=== PATIENT | male | born 1950 | race African-American/Black ===

== ENCOUNTER 2017-09-26 13:08 | Emergency (ER) | payer OTHER ==
[~2017-09-26] VITALS: Ht 203.2 cm; Wt 67.0 kg
[2017-09-26 13:15] VITALS: BP 112/82; PULSE 102; RESP 14; TEMP 98; O2SAT 94
[2017-09-26] MEDS ORDERED: SODIUM CHLORIDE 0.9% FLUSH 10 ML FLUSH IVF PRN (14:45)
--- NOTE | 2017-09-26 14:47 | PD ---
HPI Chief Complaint: GI Complaint Time Seen by Provider: 14:25 Travel History International Travel<30 days: No Contact w/Intl Traveler<30days: No Traveled to known affect area: No History of Present Illness HPI Patient gives a history of about a weeklong occasional nausea vomiting and diarrhea that developed. Patient does not recall if he ever had any abdominal pain prior to vomiting or diarrhea. However the patient did recall that about the same time that he started having these symptoms he did have a dry cough. This cough has continued to be present and now continues to appear to worsen where now it is productive of some yellow to green sputum. Patient denies any associated factors such as fever, rash, back pain, chest pain, headache. Patient also denies any alleviating or aggravating factors. Patient does not recall who the primary care physician is except that is through [employer] Patient denies any known drug allergies Patient denies any past medical history Patient only states that he has had facial fracture repair PFSH Past Medical History Medical History: Denies Significant Hx Influenza Vaccination: No Past Surgical History Surgical History: No Previous Surgery Social History Alcohol Use: Yes Tobacco Use: Yes Substance Use: No Allergies-Medications (Allergen,Severity, Reaction): Coded Allergies: No Known Allergies (Unverified , 09/26/17) Reported Meds & Prescriptions Reported Meds & Active Scripts Active No Active Prescriptions or Reported Medications Review of Systems General / Constitutional: No: Fever Eyes: No: Visual changes HENT: No: Headaches Cardiovascular: No: Chest Pain or Discomfort Respiratory: Positive: Cough Gastrointestinal: Positive: Nausea, Vomiting, Diarrhea Genitourinary: No: Dysuria Musculoskeletal: No: Pain Skin: No Rash Neurologic: No: Weakness Psychiatric: No: Depression Endocrine: No: Polydipsia Hematologic/Lymphatic: No: Easy Bruising Physical Exam Narrative GENERAL: SKIN: Warm and dry. HEAD: Atraumatic. Normocephalic. EYES: Pupils equal and round. No scleral icterus. No injection or drainage. ENT: No nasal bleeding or discharge. Mucous membranes pink and moist. NECK: Trachea midline. No JVD. CARDIOVASCULAR: Regular rate and rhythm. RESPIRATORY: No accessory muscle use. Bilateral wheezing, but with good tidal volume GASTROINTESTINAL: Abdomen soft, non-tender, nondistended. MUSCULOSKELETAL: Extremities without clubbing, cyanosis, or edema. No obvious deformities. NEUROLOGICAL: Awake and alert. No obvious cranial nerve deficits. Motor grossly within normal limits. Five out of 5 muscle strength in the arms and legs. Normal speech. PSYCHIATRIC: Appropriate mood and affect; insight and judgment normal. Data Data Last Documented VS Vital Signs Date Time Temp Pulse Resp B/P (MAP) Pulse Ox O2 Delivery O2 Flow Rate FiO2 09/26/17 14:58 166/84 (111) 145/92 (109) 09/26/17 14:58 98 Room Air 09/26/17 13:15 98.0 102 14 Orders Orders Electrocardiogram (09/26/17 14:40) B-Type Natriuretic Peptide (09/26/17 14:40) Complete Blood Count With Diff (09/26/17 14:40) Comprehensive Metabolic Panel (09/26/17 14:40) Prothrombin Time / Inr (Pt) (09/26/17 14:40) Act Partial Throm Time (Ptt) (09/26/17 14:40) Troponin I (09/26/17 14:40) Lipase (09/26/17 14:40) Chest, Single Ap (09/26/17 14:40) Ecg Monitoring (09/26/17 14:40) Bilateral Bp Monitoring (09/26/17 14:40) Iv Access Insert/Monitor (09/26/17 14:40) Oximetry (09/26/17 14:40) Sodium Chloride 0.9% Flush (Ns Flush) (09/26/17 14:45) Labs Laboratory Tests Test 09/26/17 14:55 09/26/17 15:24 White Blood Count 17.4 TH/MM3 Red Blood Count 5.70 MIL/MM3 Hemoglobin 17.2 GM/DL Hematocrit 52.7 % Mean Corpuscular Volume 92.4 FL Mean Corpuscular Hemoglobin 30.1 PG Mean Corpuscular Hemoglobin Concent 32.6 % Red Cell Distribution Width 13.6 % Platelet Count 372 TH/MM3 Mean Platelet Volume 8.8 FL Neutrophils (%) (Auto) 84.6 % Lymphocytes (%) (Auto) 5.3 % Monocytes (%) (Auto) 6.8 % Eosinophils (%) (Auto) 0.1 % Basophils (%) (Auto) 3.2 % Neutrophils # (Auto) 14.7 TH/MM3 Lymphocytes # (Auto) 0.9 TH/MM3 Monocytes # (Auto) 1.2 TH/MM3 Eosinophils # (Auto) 0.0 TH/MM3 Basophils # (Auto) 0.6 TH/MM3 CBC Comment DIFF FINAL Differential Comment Prothrombin Time 12.6 SEC Prothromb Time International Ratio 1.2 RATIO Activated Partial Thromboplast Time 31.7 SEC B-Type Natriuretic Peptide 83 PG/ML Blood Urea Nitrogen 15 MG/DL Creatinine 1.10 MG/DL Random Glucose 110 MG/DL Total Protein 9.0 GM/DL Albumin 3.0 GM/DL Calcium Level 8.9 MG/DL Alkaline Phosphatase 53 U/L Aspartate Amino Transf (AST/SGOT) 24 U/L Alanine Aminotransferase (ALT/SGPT) 19 U/L Total Bilirubin 1.7 MG/DL Sodium Level 135 MEQ/L Potassium Level 4.1 MEQ/L Chloride Level 101 MEQ/L Carbon Dioxide Level 21.4 MEQ/L Anion Gap 13 MEQ/L Estimat Glomerular Filtration Rate 81 ML/MIN Troponin I LESS THAN 0.02 NG/ML Lipase 84 U/L [facility] Medical Decision Making Medical Screen Exam Complete: Yes Emergency Medical Condition: Yes Medical Record Reviewed: Yes Interpretation(s) Pulse ox shows excellent PLETH wave, 96-97% on room air which is interpreted as a normal pulse oximetry EKG shows normal sinus rhythm at 93 bpm with frequent monofocal PVCs. There are some nonspecific ST-T wave changes as well as some inverted T waves on the inferior and lateral leads of 2 3 aVF V3 to V6 Differential Diagnosis Atypical pneumonia versus viral gastroenteritis versus bacterial gastroenteritis versus electrolyte abnormality versus COPD Narrative Course CBC shows leukocytosis of 17,000, hemoconcentration of 17/52, 85% neutrophilia with a left shift Coagulation profile is within normal limits Complete metabolic profile shows normal electrolytes, normal kidney function, negative troponin, normal beta natruretic peptide, normal lipase, Chest x-ray is read by radiologist does not show any evidence of pneumonia pneumothorax or pleural effusion. Diagnosis Primary Impression: BACTERIAL ENTERITIS Patient Instructions: Gastroenteritis (ED), General Instructions Scripts Metronidazole (Flagyl) 500 Mg Tab 500 MG PO TID for Infection, #30 TAB 0 Refills Prov: Arvind Cristina MD 09/26/17 Ciprofloxacin (Cipro) 500 Mg Tab 500 MG PO BID for Infection, #10 TAB 0 Refills Prov: Arvind Cristina MD 09/26/17 Ondansetron Odt (Zofran Odt) 4 Mg Tab 4 MG SL Q6HR Y for Nausea/Vomiting, #20 TAB 0 Refills Prov: Arvind Cristina MD 09/26/17 Disposition: 01 DISCHARGE HOME Condition: Stable Arvind Cristina MD Sep 26, 2017 14:47
[2017-09-26 14:58] VITALS: BP_SYST 145; BP_SYST 166; BP_DIAS 84; BP_DIAS 92; O2SAT 98
[2017-09-26 15:17] LABS: AUTOMATED NEUTROPHIL # 14.7 TH/MM3 (1.8-7.7); BASOPHIL # 0.6 TH/MM3 (0-0.2); BASOPHIL % 3.2 % (0.0-2.0); EOSINOPHIL % 0.1 % (0.0-4.0); HEMATOCRIT 52.7 % (39.0-51.0); HEMOGLOBIN 17.2 GM/DL (13.0-17.0); INTERNATIONAL NORMALIZED RATIO 1.2 RATIO; LYMPH % 5.3 % (9.0-44.0); LYMPHOCYTE # 0.9 TH/MM3 (1.0-4.8); MEAN CELL VOLUME 92.4 FL (80.0-100.0); MEAN CORPUSCULAR HEMOGLOBIN 30.1 PG (27.0-34.0); MEAN CORPUSCULAR HGB CONC 32.6 % (32.0-36.0); MEAN PLATELET VOLUME 8.8 FL (7.0-11.0); MONO % 6.8 % (0.0-8.0); MONOCYTE # 1.2 TH/MM3 (0-0.9); NEUT % 84.6 % (16.0-70.0); PLATELET COUNT 372 TH/MM3 (150-450); PROTHROMBIN TIME - PATIENT 12.6 SEC (9.8-11.6); RED CELL DISTRIBUTION WIDTH 13.6 % (11.6-17.2); WHITE BLOOD COUNT 17.4 TH/MM3 (4.0-11.0)
--- NOTE | 2017-09-26 15:19 | RADRPT ---
EXAM DATE/TIME: 09/26/2017 15:00 [place] COMPARISON: No previous studies available for comparison. INDICATIONS : Cough. MEDICAL HISTORY : None. SURGICAL HISTORY : None. ENCOUNTER: Initial ACUITY: 3 days PAIN SCORE: 0/10 LOCATION: Bilateral chest FINDINGS: A single view of the chest demonstrates the lungs to be symmetrically aerated without evidence of mas s, infiltrate or effusion. The cardiomediastinal contours are unremarkable. Osseous structures are intact with some degenerative spurring of the dorsal spine. CONCLUSION: No acute cardiopulmonary process. Colby Seth MD on September 26, 2017 at 15:17 Board Certified Radiologist. This report was verified electronically.
[2017-09-26 15:46] LABS: CHLORIDE 101 MEQ/L (98-107); SODIUM (NA) 135 MEQ/L (136-145)
[2017-09-26 15:49] LABS: BICARBONATE 21.4 MEQ/L (21.0-32.0); CALCIUM 8.9 MG/DL (8.5-10.1); GLUCOSE,RANDOM 110 MG/DL (74-106)
[2017-09-26 15:50] LABS: BLOOD UREA NITROGEN 15 MG/DL (7-18)
[2017-09-26 15:52] LABS: ALT (GPT) 19 U/L (12-78); AST (GOT) 24 U/L (15-37); GLOMERULAR FILTRATION RATE 81 ML/MIN (>89)
[2017-09-26 15:54] LABS: TOTAL BILIRUBIN ADULT 1.7 MG/DL (0.2-1.0)
[2017-09-26 15:55] LABS: ALKALINE PHOSPHATASE 53 U/L (45-117)
[2017-09-26 15:58] LABS: TROPONIN I LESS THAN 0.02 NG/ML (0.02-0.05)
[2017-09-26] MEDS ORDERED: METR-1 PO (16:32)
[2017-09-26] MEDS ORDERED: ZOFR4TAB3 SL (16:32)
[2017-09-26] MEDS ORDERED: CIPR-9 PO (16:32)
[2017-09-26] MEDS ORDERED: metroNIDAZOLE 500 MG TAB PO ONE (16:45)
[2017-09-26] MEDS ORDERED: ONDANSETRON HCL 4 MG/2 ML VIAL IVP ONE (16:45)
[2017-09-26] MEDS ORDERED: CIPROFLOXACIN 500 MG TAB PO ONE (16:45)
[2017-09-26 17:08] VITALS: BP 118/70; PULSE 92; RESP 18; O2SAT 95
--- NOTE | 2017-09-27 22:46 | EKG ---
Date Performed: 09/26/2017 Time Performed: 14:58:51 PTAGE: 67 years EKG: Sinus rhythm WITH FREQUENT SUPRAVENTRICULAR PREMATURE COMPLEXES ST DEVIATION AND MODERATE T-WAVE ABNORMALITY ABNO RMAL ECG NO PREVIOUS TRACING DOCTOR: Delma Lanier Interpretating Date/Time 09/27/2017 22:45:39
== END 2017-09-26 17:41 | disposition home or self-care (01) ==
LOC: PHED 13:08
DX: A04.9 Bacterial intestinal infection, unspecified (principal); R05 Cough; R94.31 Abnormal electrocardiogram [ECG] [EKG]; Z72.0 Tobacco use
CPT/HCPCS: 71045; 80053; 83690; 83880; 84484; 85025; 85610; 85730; 93005; 96374; 99285; J2405

== ENCOUNTER 2017-11-20 07:13 | Emergency (ER) | payer OTHER ==
[~2017-11-20] VITALS: Ht 195.6 cm; Wt 73.0 kg
[~2017-11-20 07:13] MED LIST: CIPR-9 PO; METR-1 PO; ZOFR4TAB3 SL
[2017-11-20 07:18] VITALS: BP 132/82; PULSE 91; RESP 16; TEMP 98; O2SAT 98
--- NOTE | 2017-11-20 07:35 | PD ---
HPI Chief Complaint: Eye Problems/Injury Time Seen by Provider: 07:31 Travel History International Travel<30 days: No Contact w/Intl Traveler<30days: No Traveled to known affect area: No History of Present Illness HPI Patient presents with complaints of right eye discomfort and redness with eyelid swelling for 1-1/2 days. Increased tearing. Denies any matting. He does wear contacts and reports multiple complications with tearing of the contact. Denies any visual loss. Denies any nausea vomiting diarrhea or fever. States he does not have glasses. Pain is 7 out of 10. States he has not been able to sleep. [facility] Social History Alcohol Use: Yes Tobacco Use: Yes Substance Use: No Allergies-Medications (Allergen,Severity, Reaction): Coded Allergies: No Known Allergies (Unverified , 11/20/17) Reported Meds & Prescriptions Reported Meds & Active Scripts Active Flagyl (Metronidazole) 500 Mg Tab 500 Mg PO TID Cipro (Ciprofloxacin HCl) 500 Mg Tab 500 Mg PO BID Zofran Odt (Ondansetron Odt) 4 Mg Tab 4 Mg SL Q6HR PRN Review of Systems General / Constitutional: No: Fever Eyes: Positive: Redness, Foreign Body Sensation, Pain, Tearing, No: Visual changes HENT: No: Headaches Cardiovascular: No: Chest Pain or Discomfort Respiratory: No: Shortness of Breath Gastrointestinal: No: Abdominal Pain Genitourinary: No: Dysuria Musculoskeletal: No: Pain Skin: No Rash Neurologic: No: Weakness Psychiatric: No: Depression Endocrine: No: Polydipsia Hematologic/Lymphatic: No: Easy Bruising Physical Exam Narrative GENERAL: Well-nourished, well-developed patient. SKIN: Focused skin assessment warm/dry. HEAD: Normocephalic. EYES: Right conjunctiva erythematous with mild blepharitis. Left is at baseline , pupils are equal round reactive to light and accommodation NECK: Supple, trachea midline. No JVD or lymphadenopathy. CARDIOVASCULAR: Regular rate and rhythm without murmurs, gallops, or rubs. RESPIRATORY: Breath sounds equal bilaterally. No accessory muscle use. GASTROINTESTINAL: Abdomen soft, non-tender, nondistended. MUSCULOSKELETAL: No cyanosis, or edema. BACK: Nontender without obvious deformity. No CVA tenderness. Data Data Last Documented VS Vital Signs Date Time Temp Pulse Resp B/P (MAP) Pulse Ox O2 Delivery O2 Flow Rate FiO2 4/22/18 07:18 98.0 91 16 132/82 (99) 98 Orders Orders Proparacaine 0.5% Opth Soln (Alcaine 0.5 (11/20/17 07:45) MDM Medical Decision Making Medical Screen Exam Complete: Yes Emergency Medical Condition: Yes Differential Diagnosis Conjunctivitis, corneal abrasion, subconjunctival hemorrhage Narrative Course Assessment plan discussed the patient at bedside. Fluoroscopy revealed a lateral corneal abrasion and a portion of the contact lens. Diagnosis Primary Impression: Corneal abrasion due to contact lens Qualified Codes: H18.821 - Corneal disorder due to contact lens, right eye Additional Instructions: Encouraged to leave contact lenses out for a week or 2. Drops as prescribed. Follow-up with ophthalmology or optometry to obtain glasses. Return to emergency room with any onset of new symptoms. Med/Other Pt SpecificInfo: Prescription(s) given Scripts Polymyxin B-Trimethoprim Opth Drops (Polytrim Opth Drops) 10,000-0.1 Unit/Ml-% Soln 1 DROP EACH EYE Q6HR for Mgmt Bacterial Infection, #1 BOTTLE 0 Refills Prov: Davonte Powers MD 11/20/17 Tramadol (Ultram) 50 Mg Tab 50 MG PO Q4H Y for PAIN, #10 TAB 0 Refills Prov: Davonte Powers MD 11/20/17 Disposition: 01 DISCHARGE HOME Condition: Good Davonte Powers MD Nov 20, 2017 07:35
[2017-11-20] MEDS ORDERED: POLY10O EACH EYE (07:44)
[2017-11-20] MEDS ORDERED: TRAM50 PO (07:44)
[2017-11-20] MEDS ORDERED: PROPARACAINE HCL 0.5% OPHT SOLN 15 ML BTL EACH EYE ONE (07:45)
== END 2017-11-20 07:50 | disposition home or self-care (01) ==
LOC: PHED 07:13
DX: H18.821 Corneal disorder due to contact lens, right eye (principal); Z72.0 Tobacco use
CPT/HCPCS: 99283